=== PATIENT | female | born 1985 | race Asian ===

== ENCOUNTER 2022-04-22 17:43 | Emergency (ER) | payer MEDICAID, OTHER ==
[~2022-04-22] VITALS: Ht 165.1 cm; Wt 72.0 kg
[2022-04-22 21:21] VITALS: BP 116/71
[2022-04-22] MEDS ORDERED: PROM1SOL4 PO (21:51)
== END 2022-04-22 21:55 | disposition home or self-care (01) ==
LOC: ER 17:50
DX: J20.9 Acute bronchitis, unspecified (principal)
CPT/HCPCS: 71046